=== PATIENT | male | born 1950 | race Caucasian/White ===

== ENCOUNTER → 2017-10-05 | Outpatient (CLI) | payer OTHER, MEDICAID | LOC: FIMAGING 11:51 | DX: R91.8 Other nonspecific abnormal finding of lung field (principal); Z72.0 Tobacco use ==

== ENCOUNTER 2018-12-31 16:39 | Emergency (ER) | payer OTHER, MEDICAID | END 2018-12-31 18:22 | disposition home or self-care (01) ==